=== PATIENT | male | born 1985 | race Asian ===

== ENCOUNTER 2020-05-03 08:09 | Emergency (ER) | payer SELFPAY ==
[~2020-05-03] VITALS: Ht 170.2 cm; Wt 83.9 kg
[2020-05-03 10:42] LABS: Basophils # (auto) 0 10 ^3/uL (0-0.2); Eosinophils # (auto) 0.2 10 ^3/uL (0-0.8); Lymphocytes # (auto) 1.5 10 ^3/uL (0.4-5.4); Monocytes # (auto) 0.5 10 ^3/uL (0-1.3)
[2020-05-03] MEDS ORDERED: SODIUM CHLORIDE 0.9% 1,000 ML IV ONE ×2 (10:43)
[2020-05-03 10:44] LABS: Basophils % (auto) 0.6 % (0.0-2.0); Eosinophils % (auto) 3.4 % (0.0-7.0); Hematocrit 44.2 % (41.0-53.0); Hemoglobin 14.4 g/dL (13.5-17.5); Lymphocytes % (auto) 23.5 % (10.0-50.0); Mean Corpuscular Hemoglobin 26.9 pg (28.0-32.0); Mean Corpuscular Hgb Conc. 32.6 g/dL (32.0-36.0); Mean Corpuscular Volume 82.5 fL (80.0-100.0); Monocytes % (auto) 6.9 % (0.0-12.0); Neutrophils # (auto) 4.3 10 ^3/uL (1.6-8.6); Neutrophils % (auto) 65.6 % (37.0-80.0); Nucleated Red Blood Cells % 0.2 %; Platelet Count (auto) 258 10^3/uL (140-450); Red Blood Cells 5.36 10^6/uL (4.5-5.90); Red Cell Distribution Width 14.1 % (11.8-14.3); White Blood Cell 6.5 10^3/uL (4.4-10.8)
[2020-05-03] MEDS ORDERED: TAMSULOSIN HYDROCHLORIDE 0.4 MG CAP PO ONE (10:45)
[2020-05-03] MEDS ORDERED: cefTRIAXone 1GM/50ML D5W 50 ML IV ONE (10:45)
[2020-05-03] MEDS ORDERED: KETOROLAC TROMETH 30 MG/ML 1ML VIAL IV ONE (10:45)
[2020-05-03 10:56] LABS: Albumin 3.8 g/dL (3.4-5.0); Calcium 8.9 mg/dL (8.5-10.1); Potassium 3.8 mmol/L (3.5-5.1)
[2020-05-03 10:58] LABS: Urine Bacteria FEW /hpf (None Seen); Urine Blood 3+ /uL (Negative); Urine Mucus FEW (None Seen); Urine Specific Gravity 1.013 (1.001-1.035); Urine WBC 7 /hpf (0 - 3)
[2020-05-03 11:01] LABS: BUN/Creatinine Ratio 11.3; Bilirubin, Total 0.5 mg/dL (0.2-1.0)
[2020-05-03 12:45] VITALS: BP 140/80
== END 2020-05-03 13:15 | disposition home or self-care (01) ==
LOC: ER 08:09 → EDBD 08:09 → ER 13:15
DX: N20.0 Calculus of kidney (principal); E86.0 Dehydration
CPT/HCPCS: 36415; 74176; 80053; 81001; 85025; 96361; 96365; 96375; 99284; J0696; J1885